=== PATIENT | male | born 1990 | race Hispanic/Latino ===

== ENCOUNTER 2016-07-01 19:02 | Emergency (ER) | payer OTHER ==
[~2016-07-01 19:02] MED LIST: A/B OTIC 54 MG/15 ML AS; ANTIVERT 25MG #1 PAC PO; AUGMENTIN 875 M1 TAB PO; CARAFATE1 GM/10 ML PO; DIET PILL PO; FLEXERIL10 MG PO; IBUPROFEN800 MG PO; MECLIZINE25 M1 PO; MOTRIN800 MG PO; NEXIUM20 MG PO; PROTONIX 40MG T40 MG PO; REGLAN10 MG PO; TRAMADOL50 MG PO; ZOFRAN ODT4 MG PO
[2016-07-01 19:57] VITALS: BP 130/77
--- NOTE | 2016-07-01 20:56 | RADIOLOGY REPORT ---
EXAMINATION: XR CHEST CLINICAL INFORMATION: 25-year-old male with bronchitis, shortness of breath, and headache. COMPARISON: None. TECHNIQUE: PA and lateral views of the chest were obtained. FINDINGS: No significant abnormality is noted involving the heart, lungs, mediastinum, bony thorax, or soft tissues. IMPRESSION: Unremarkable examination.
[2016-07-01] MEDS ORDERED: ZITHROMAX500 M2 PO (23:13)
[2016-07-01] MEDS ORDERED: TESSALON PERLE100 M1 PO (23:13)
[2016-07-01] MEDS ORDERED: NASONEX17 GM NASB (23:13)
--- NOTE | 2016-07-01 23:13 | ED INFLUENZA/URI COMPLAINT ---
History of Present Illness General Chief Complaint: Upper Respiratory Sx/Fever Stated Complaint: SINUS INFECTION Source: patient Exam Limitations: no limitations Vital Signs & Intake/Output Vital Signs & Intake/Output Vital Signs Date Time Temp Pulse Resp B/P Pulse O2 O2 Flow FiO2 Ox Delivery Rate 07/01 2002 98.9 07/01 1956 98.9 82 20 130/77 98 Room Air ED Intake and Output 07/02 0000 07/01 1200 Intake Total 0 Output Total Balance 0 Intake, Oral 0 Allergies Coded Allergies: NO KNOWN ALLERGIES (06/18/15) Reconcile Medications Azithromycin (Zithromax) 500 MG TABLET 1 TAB PO DAILY SINUSITIS Benzonatate (Tessalon Perle) 100 MG CAPSULE 1 CAP PO TID PRN COUGH Mometasone Furoate (Nasonex) 50 MCG SPRAY.PUMP 2 SPRAY NASB DAILY SINUSITIS Triage Note: TRIAGE; PT TO ED STATING HE THINKS HE HAS A SINUS INFECTION. REPORTS THAT THE PAIN IN HIS HEAD STARTED AT 4AM TODAY. STATES THAT HE HAD A FEVER EARLIER. IS C/O PRESSURE BEHIND HIS LEFT EYE AND THAT IS WHERE MOST OF HIS PAIN IS. PT STATES HE FEELS SOB WELL. LUNGS APEPAR CLEAR, PT SPEAKING IN COMPLETE SENTENCES, AND RA SAT 98%. PT ASKING FOR PAIN MEDICATION IN TRIAGE. MEDICATED WITH MOTRIN (SEE MAR). Triage Nurses Notes Reviewed? yes Onset: Gradual Duration: constant Timing: recent history Severity: severe Severity Numbers: 7 HPI: Patient is a 25-year-old male who presents the emergency and that 3 days ago patient had gradual onset of nonproductive cough sinus congestion head congestion and generalized not feeling well and was today he had a gradual onset of left-sided frontal and maxillary sinus pain. Patient has nasal congestion and nasal drip. No medications given prior to arrival. Denies any sore throat chest pain ear pain Past History Travel History Traveled to [place] past 21 day No Medical History Any Pertinent Medical History? 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 No Review of Systems Review of Systems Constitutional: Reports: no symptoms. EENTM: Reports: see HPI. Respiratory: Reports: see HPI, cough. Cardiovascular: Reports: no symptoms. GI: Reports: no symptoms. Genitourinary: Reports: no symptoms. Musculoskeletal: Reports: no symptoms. Skin: Reports: no symptoms. Neurological/Psychological: Reports: see HPI. Hematologic/Endocrine: Reports: no symptoms. Immunologic/Allergic: Reports: no symptoms. All Other Systems: Reviewed and Negative Physical Exam Physical Exam General Appearance: no apparent distress, alert, comfortable Ears, Nose, Throat: normal ENT inspection, nasal congestion, nasal drainage, LEFT MAXILLA SINUS TENDERNESS Comments: Well-developed well-nourished person in no acute distress HEENT: extraocular motion intact, no nystagmus. Pupils equally round and reactive to light and accommodation. Nose is atraumatic. External auditory canal and Tympanic membranes clear. Pharynx normal. No swelling or edema. Neck: Supple, no lymphadenopathy, normal range of motion without pain or tenderness Back: Nontender, no CVA tenderness. Cardiovascular: Regular rate and rhythms no murmurs rubs or gallops, normal JVP Respiratory: Chest nontender. No respiratory distress.breath sounds clear to auscultation bilaterally Abdomen: Soft, nontender nondistended, no appreciable organomegaly. Normal bowel sounds. No ascites Extremity: No edema, no calf tenderness to palpation, normal and equal pulses. Neuro: Alert oriented x3, motor sensory normal Skin: No appreciable rash on exposed skin, skin is warm and dry. Psych: Mood and affect is normal, memory and judgment is normal. Core Measures Severe Sepsis Present: No Septic Shock Present: No Progress Differential Diagnosis: influenza, meningitis, neutropenia, otitis, pneumonia, pharyngitis, sinusitis Plan of Care: Due to history of present's and exam findings patient will be treated for concerns of sinusitis and upper respiratory infection. Patient is afebrile and nontoxic-appearing and clear lungs to auscultation. Initial ED EKG: none Departure Departure Disposition: HOME OR SELF CARE Condition: Stable Clinical Impression Primary Impression: Sinusitis Secondary Impressions: Upper respiratory disease Referrals: PATIENT HAS NO PRIMARY CARE DR (PCP/Family) Additional Instructions: As discussed begin [id number] Mucinex for cough and began [id number] Sudafed for congestion. Begin the prescription of azithromycin for the full course, the prescription is next for congestion, and a prescription Tessalon Perles for cough YOU had been given a list of primary care doctors for follow-up, please call THE LIST OF doctor tomorrow to follow-up and establish a doctor. If symptoms worsen return to the emergency room. Prescriptions awaiting at [facility] pharmacy Departure Forms: Customer Survey General Discharge Information Prescriptions: Current Visit Scripts Azithromycin (Zithromax) 1 TAB PO DAILY #5 TAB Benzonatate (Tessalon Perle) 1 CAP PO TID PRN COUGH #21 CAP Mometasone Furoate (Nasonex) 2 SPRAY NASB DAILY #1 INHAL
== END 2016-07-02 00:18 ==
LOC: ERH 19:02
DX: J32.9 Chronic sinusitis, unspecified (principal); J02.9 Acute pharyngitis, unspecified